=== PATIENT | female | born 1935 | race Caucasian/White ===

== ENCOUNTER 2017-11-25 12:22 | Inpatient (IN) | payer MEDICARE ==
[~2017-11-25] VITALS: Ht 149.9 cm; Wt 45.6 kg
[2017-11-26 17:19] VITALS: BP 89/47
[2017-11-26 18:16] VITALS: BP 89/47
[2017-11-26 20:07] LABS: BASO # 0.1 (0.02-0.10); EOS # 0.2 (0.04-0.40); EOS % 1.6 % (1.0-5.0); HEMATOCRIT 29.4 % (37.0-47.0); HEMOGLOBIN 8.8 g/dL (12.5-16.0); LYMPH# 1.7 (1.50-4.00); MEAN CELL VOLUME 93 fl (78-100); MEAN CORPUSCULAR HEMOGLOBIN 28 pg (27-31); MEAN CORPUSCULAR HGB CONC 30 g/dL (33-37); MEAN PLATELET VOLUME 9.2 fl (7.4-10.4); MONO # 0.8 (0.20-0.80); NEU # 6.6 (1.40-6.50); RED BLOOD COUNT 3.15 M/mm3 (4.10-5.30); RED CELL DISTRIBUTION WIDTH 15.7 % (11.5-14.5); WHITE BLOOD COUNT 9.3 K/mm3 (4.8-10.8)
[2017-11-26 20:11] LABS: ALBUMIN 3.1 g/dL (3.5-5.0); CALCIUM 8.9 mg/dL (8.4-10.2); POTASSIUM 4.3 mmol/L (3.6-5.0); TOTAL BILIRUBIN 0.5 mg/dL (0.2-1.3); TOTAL PROTEIN 6.1 g/dL (6.3-8.2)
[2017-11-26 20:20] LABS: PLATELET COUNT 568 K/mm3 (130-400)
[2017-11-26] MEDS ORDERED: NEURONTIN100 M1 PO ×2 (20:45)
[2017-11-26] MEDS ORDERED: FOSAMAX 70MG TA70 MG PO (20:45)
[2017-11-26] MEDS ORDERED: ASPIRIN E.C. 8181 MG PO (20:45)
[2017-11-26] MEDS ORDERED: CLOPIDOGREL PO (20:46)
[2017-11-26] MEDS ORDERED: LIPITOR 40MG TA40 MG PO (20:46)
[2017-11-26] MEDS ORDERED: DEXILANT30 MG PO (20:46)
[2017-11-26] MEDS ORDERED: DICLOFENAC SOD100 GM TP (20:47)
[2017-11-26] MEDS ORDERED: COLACE100 M1 PO (20:48)
[2017-11-26] MEDS ORDERED: DIGOXIN125 MCG PO (20:48)
[2017-11-26] MEDS ORDERED: ROBAXIN-750750 MG PO (20:49)
[2017-11-26] MEDS ORDERED: CORLANOR5 MG PO (20:49)
[2017-11-26] MEDS ORDERED: METOPROLOL SUCC25 M1 PO (20:50)
[2017-11-26] MEDS ORDERED: CENTRUM FLAVOR1 EAC1 PO (20:50)
[2017-11-26] MEDS ORDERED: ACETAMINOPHEN-O1 TAB PO (20:51)
[2017-11-26] MEDS ORDERED: DEMADEX 20MG20 M1 PO (20:52)
[2017-11-26] MEDS ORDERED: SENNA8.6 M1 PO (20:52)
[2017-11-27 06:20] VITALS: BP 120/60
[2017-11-27 07:48] VITALS: BP 135/75
[2017-11-27 08:04] LABS: URINE APPEARANCE CLEAR; URINE COLOR YELLOW
[2017-11-27 08:05] LABS: URINE BILIRUBIN NEGATIVE (NEGATIVE); URINE BLOOD NEGATIVE (NEGATIVE); URINE GLUCOSE NEGATIVE (NEGATIVE); URINE KETONE NEGATIVE (NEGATIVE); URINE LEUKOCYTE ESTERASE NEGATIVE (NEGATIVE); URINE NITRATE NEGATIVE (NEGATIVE); URINE PROTEIN(semi-quant) NEGATIVE (NEGATIVE); URINE UROBILINOGEN NORMAL (NORMAL)
[2017-11-27 16:45] VITALS: BP 128/69
[2017-11-27 18:37] VITALS: BP 114/54
[2017-11-28 06:22] VITALS: BP 132/65
[2017-11-28 18:28] VITALS: BP 121/38
[2017-11-29 06:37] VITALS: BP 132/65
[2017-11-29 18:21] VITALS: BP 122/57
[2017-11-30 06:32] VITALS: BP 108/53
[2017-11-30 18:09] VITALS: BP 116/52
[2017-12-01 06:36] VITALS: BP 111/64
[2017-12-01 06:57] LABS: BASO # 0.1 (0.02-0.10); EOS # 0.2 (0.04-0.40); EOS % 2.4 % (1.0-5.0); HEMATOCRIT 35.5 % (37.0-47.0); HEMOGLOBIN 10.5 g/dL (12.5-16.0); LYMPH# 3.1 (1.50-4.00); MEAN CELL VOLUME 92 fl (78-100); MEAN CORPUSCULAR HEMOGLOBIN 27 pg (27-31); MEAN CORPUSCULAR HGB CONC 30 g/dL (33-37); MONO # 0.8 (0.20-0.80); NEU # 5.4 (1.40-6.50); RED BLOOD COUNT 3.87 M/mm3 (4.10-5.30); RED CELL DISTRIBUTION WIDTH 15.5 % (11.5-14.5); WHITE BLOOD COUNT 9.7 K/mm3 (4.8-10.8)
[2017-12-01 07:06] LABS: PLATELET COUNT 611 K/mm3 (130-400)
[2017-12-01 07:22] LABS: ALBUMIN 3.4 g/dL (3.5-5.0); ALT/SGPT 37 U/L (9-52); AST-SGOT 38 U/L (14-36); BUN/CREATININE RATIO 42.9 (6.0-26.0); CALCIUM 8.9 mg/dL (8.4-10.2); CARBON DIOXIDE 33 mmol/L (22-30); GLUCOSE 100 mg/dL (65-105); POTASSIUM 3.8 mmol/L (3.6-5.0); SODIUM 137 mmol/L (137-145); TOTAL BILIRUBIN 0.3 mg/dL (0.2-1.3); TOTAL PROTEIN 6.4 g/dL (6.3-8.2)
[2017-12-01 08:00] LABS: ERYTHROCYTE SEDIMENTATION RATE 78 mm/hr (0-30)
[2017-12-01 18:23] VITALS: BP 109/55
[2017-12-02 06:35] VITALS: BP 108/51
[2017-12-02 11:58] VITALS: BP 109/52
[2017-12-02 18:42] VITALS: BP 111/53
[2017-12-03 06:40] VITALS: BP 124/62
[2017-12-03 18:23] VITALS: BP 102/43
[2017-12-03 22:49] LABS: PH-URINE 7.5 (5.0 - 8.0); URINE APPEARANCE CLEAR; URINE BILIRUBIN NEGATIVE (NEGATIVE); URINE COLOR YELLOW; URINE GLUCOSE NEGATIVE (NEGATIVE); URINE KETONE NEGATIVE (NEGATIVE); URINE PROTEIN(semi-quant) NEGATIVE (NEGATIVE); URINE UROBILINOGEN NORMAL (NORMAL)
[2017-12-03 22:50] LABS: URINE BLOOD NEGATIVE (NEGATIVE); URINE LEUKOCYTE ESTERASE NEGATIVE (NEGATIVE); URINE NITRATE NEGATIVE (NEGATIVE); URINE WBC 0-1 /hpf (0-3)
[2017-12-04 06:27] VITALS: BP 130/61
[2017-12-04 18:00] VITALS: BP 111/59
[2017-12-05 06:19] VITALS: BP 127/62
[2017-12-05 18:11] VITALS: BP 96/51
[2017-12-06 07:00] VITALS: BP 116/53
[2017-12-06 13:29] VITALS: BP 135/61
[2017-12-06 18:47] VITALS: BP 102/50
[2017-12-07 07:18] VITALS: BP 136/65
[2017-12-07 18:27] VITALS: BP 105/55
[2017-12-08 06:24] VITALS: BP 118/62
[2017-12-08 06:41] LABS: BASO # 0.1 (0.02-0.10); EOS # 0.2 (0.04-0.40); EOS % 2.7 % (1.0-5.0); HEMATOCRIT 33.1 % (37.0-47.0); HEMOGLOBIN 9.8 g/dL (12.5-16.0); LYMPH# 2.2 (1.50-4.00); MEAN CELL VOLUME 91 fl (78-100); MEAN CORPUSCULAR HEMOGLOBIN 27 pg (27-31); MEAN CORPUSCULAR HGB CONC 30 g/dL (33-37); MEAN PLATELET VOLUME 8.8 fl (7.4-10.4); MONO # 0.7 (0.20-0.80); NEU # 4.8 (1.40-6.50); PLATELET COUNT 478 K/mm3 (130-400); RED BLOOD COUNT 3.65 M/mm3 (4.10-5.30); RED CELL DISTRIBUTION WIDTH 15.5 % (11.5-14.5); WHITE BLOOD COUNT 7.9 K/mm3 (4.8-10.8)
[2017-12-08 06:58] LABS: ALBUMIN 3.2 g/dL (3.5-5.0); ALT/SGPT 36 U/L (9-52); AST-SGOT 30 U/L (14-36); CALCIUM 8.8 mg/dL (8.4-10.2); CARBON DIOXIDE 27 mmol/L (22-30); GLUCOSE 98 mg/dL (65-105); POTASSIUM 4.2 mmol/L (3.6-5.0); SODIUM 139 mmol/L (137-145); TOTAL BILIRUBIN 0.2 mg/dL (0.2-1.3); TOTAL PROTEIN 6.1 g/dL (6.3-8.2)
[2017-12-08 07:53] LABS: ERYTHROCYTE SEDIMENTATION RATE 63 mm/hr (0-30)
[2017-12-08 18:30] VITALS: BP 112/57
[2017-12-09 06:23] VITALS: BP 128/66
[2017-12-09 18:11] VITALS: BP 118/41
[2017-12-10 06:44] VITALS: BP 162/67
[2017-12-10 18:11] VITALS: BP 111/47
[2017-12-11 06:25] VITALS: BP 137/62
[2017-12-11 18:41] VITALS: BP 117/46
[2017-12-12 06:06] VITALS: BP 150/67
[2017-12-12 18:42] VITALS: BP 113/50
[2017-12-13 06:07] VITALS: BP 133/56
[2017-12-13 19:05] VITALS: BP 136/65
[2017-12-14 06:46] VITALS: BP 113/51
[2017-12-14 18:36] VITALS: BP 103/45
[2017-12-15 06:30] VITALS: BP 127/52
[2017-12-15 06:50] LABS: BASO # 0.1 (0.02-0.10); EOS # 0.1 (0.04-0.40); EOS % 1.6 % (1.0-5.0); HEMATOCRIT 32.6 % (37.0-47.0); HEMOGLOBIN 9.8 g/dL (12.5-16.0); LYMPH# 2.8 (1.50-4.00); MEAN CELL VOLUME 89 fl (78-100); MEAN CORPUSCULAR HEMOGLOBIN 27 pg (27-31); MEAN CORPUSCULAR HGB CONC 30 g/dL (33-37); MEAN PLATELET VOLUME 9.2 fl (7.4-10.4); MONO # 0.7 (0.20-0.80); NEU # 3.7 (1.40-6.50); PLATELET COUNT 397 K/mm3 (130-400); RED BLOOD COUNT 3.68 M/mm3 (4.10-5.30); RED CELL DISTRIBUTION WIDTH 15.3 % (11.5-14.5); WHITE BLOOD COUNT 7.3 K/mm3 (4.8-10.8)
[2017-12-15 07:06] LABS: ALBUMIN 3.1 g/dL (3.5-5.0); ALT/SGPT 32 U/L (9-52); AST-SGOT 27 U/L (14-36); CALCIUM 8.7 mg/dL (8.4-10.2); CARBON DIOXIDE 28 mmol/L (22-30); GLUCOSE 94 mg/dL (65-105); POTASSIUM 4.4 mmol/L (3.6-5.0); SODIUM 140 mmol/L (137-145); TOTAL BILIRUBIN 0.2 mg/dL (0.2-1.3); TOTAL PROTEIN 5.7 g/dL (6.3-8.2)
[2017-12-15 07:57] LABS: ERYTHROCYTE SEDIMENTATION RATE 33 mm/hr (0-30)
[2017-12-15 18:14] VITALS: BP 109/51
[2017-12-16 06:27] VITALS: BP 120/60
[2017-12-16 19:05] VITALS: BP 114/39
[2017-12-17 06:25] VITALS: BP 132/58
[2017-12-17 18:21] VITALS: BP 140/52
[2017-12-18 06:34] VITALS: BP 122/53
[2017-12-18 18:30] VITALS: BP 120/49
[2017-12-19 06:28] VITALS: BP 162/62
[2017-12-19 18:23] VITALS: BP 107/53
[2017-12-20 06:41] VITALS: BP 131/54
[2017-12-20 18:34] VITALS: BP 140/59
[2017-12-21 06:30] VITALS: BP 140/48
[2017-12-21 18:41] VITALS: BP 136/58
[2017-12-22 06:32] VITALS: BP 156/66
[2017-12-22 07:31] LABS: HEMATOCRIT 32.8 % (37.0-47.0); HEMOGLOBIN 9.9 g/dL (12.5-16.0); MEAN CELL VOLUME 87 fl (78-100); MEAN CORPUSCULAR HEMOGLOBIN 26 pg (27-31); MEAN CORPUSCULAR HGB CONC 30 g/dL (33-37); MEAN PLATELET VOLUME 9.5 fl (7.4-10.4); PLATELET COUNT 322 K/mm3 (130-400); RED BLOOD COUNT 3.78 M/mm3 (4.10-5.30); RED CELL DISTRIBUTION WIDTH 15.2 % (11.5-14.5); WHITE BLOOD COUNT 8.8 K/mm3 (4.8-10.8)
[2017-12-22 08:56] LABS: ALBUMIN 3.1 g/dL (3.5-5.0); BUN/CREATININE RATIO 55.9 (6.0-26.0); CALCIUM 8.6 mg/dL (8.4-10.2); POTASSIUM 4.3 mmol/L (3.6-5.0); TOTAL BILIRUBIN 0.2 mg/dL (0.2-1.3); TOTAL PROTEIN 5.9 g/dL (6.3-8.2)
[2017-12-22 09:16] LABS: LYMPHOCYTE 34 % (20-51); MONOCYTE 7 % (3-10); NEUTROPHILS 50 % (42-75)
[2017-12-22 09:26] LABS: ERYTHROCYTE SEDIMENTATION RATE 48 mm/hr (0-30)
[2017-12-22 17:50] VITALS: BP 122/54
[2017-12-23 06:21] VITALS: BP 152/61
[2017-12-23 18:09] VITALS: BP 118/47
[2017-12-24 06:30] VITALS: BP 130/58
[2017-12-24 18:31] VITALS: BP 111/50
[2017-12-25 06:45] VITALS: BP 126/62
[2017-12-25 17:54] VITALS: BP 119/45
[2017-12-26 06:12] VITALS: BP 150/63
[2017-12-26] MEDS ORDERED: ALDACTONE25 M1 PO (07:41)
[2017-12-26] MEDS ORDERED: FENTANYL1 EAC3 TD (07:42)
[2017-12-26] MEDS ORDERED: MIRTAZAPINE15 MG PO (07:48)
[2017-12-26] MEDS ORDERED: TORSEMIDE10 M1 PO (07:49)
[2017-12-26] MEDS ORDERED: MEGESTROL AC40 MG/ML PO (07:52)
[2017-12-26 18:49] VITALS: BP 138/66
[2017-12-27 06:27] VITALS: BP 156/62
== END 2017-12-27 11:20 | disposition home health service (06) | DRG 194 ==
LOC: MED/SURG 12:22
PROVIDERS: Nurse Practitioner Primary Care; ADMIT Physician Assistant
DX: J10.00 Influenza due to other identified influenza virus with unspecified type of pneumonia (principal); N39.0 Urinary tract infection, site not specified; I50.20 Unspecified systolic (congestive) heart failure; R53.81 Other malaise
CPT/HCPCS: A4354; J0878; J1644